=== PATIENT | female | born 1970 | race Caucasian/White ===

== ENCOUNTER 2021-09-06 23:09 | Emergency (ER) | payer OTHER ==
[~2021-09-06] VITALS: Ht 165.1 cm; Wt 88.5 kg
[2021-09-06 23:34] VITALS: BP 140/95
[2021-09-06] MEDS ORDERED: L.E.T. GEL 3ML SYG TP ONE (23:39)
[2021-09-06] MEDS ORDERED: ACETAMINOPHEN 325 MG TAB ONE (23:39)
[2021-09-07] MEDS ORDERED: L.E.T. GEL 3ML SYG TP ONE
[2021-09-07] MEDS ORDERED: ACETAMINOPHEN 325 MG TAB PO ONE
[2021-09-07] MEDS ORDERED: MECLIZINE HCL 25 MG TABLET PO ONE (00:30)
[2021-09-07] MEDS ORDERED: MECL-226 PO (00:50)
[2021-09-07] MEDS ORDERED: ACET-2743 PO (00:50)
== END 2021-09-07 01:00 | disposition home or self-care (01) ==
LOC: EDH 23:09
DX: S01.01XA Laceration without foreign body of scalp, initial encounter (principal); F17.200 Nicotine dependence, unspecified, uncomplicated; X58.XXXA Exposure to other specified factors, initial encounter; Y93.89 Activity, other specified; Y92.89 Other specified places as the place of occurrence of the external cause; Y99.8 Other external cause status
CPT/HCPCS: 12001; 70450